=== PATIENT | male | born 1940 | race Caucasian/White ===

== ENCOUNTER 2016-11-28 09:24 | Observation (INO) | payer MEDICARE, OTHER ==
[~2016-11-28 09:24] MED LIST: ACETAMINOPHEN325 MG PO; ADULT ASPIRIN81 MG PO; ASPIR 8181 M1 PO; CARBAMAZEPINE200 M3 PO; CARBATROL200 MG PO; CARBATROL300 MG PO; CELEBREX200 M1 PO; CITRUCEL479 GM PO; COLACE100 MG PO; COUMADIN10 MG PO; COUMADIN2 MG; COUMADIN4 MG; COUMADIN4 MG PO; COUMADIN5 M2 PO; COUMADIN7.5 MG PO; COZAAR50 M1 PO; CRESTOR10 MG PO; DIOVAN160 MG; FERROUS SULFAT325 MG PO; H PO; KEFLEX500 M4 PO; KEPPRA500 MG; LEXAPRO10 M1 PO; LEXAPRO10 M2 PO; LEXAPRO10 MG; LEXAPRO10 MG PO; LOSARTAN POTAS100 MG PO; LOSARTAN POTASS50 MG PO; LOVENOX100 MG/ SQ; LOVENOX100 MG/1 M SQ; LOVENOX40 MG/0.1 SQ; LOW DOSE ASPIRI81 M1 PO; MIRALAX17 G1 PO; MIRALAX17 G2 PO; MIRALAX17 GM PO; MULTIVITAMINS1 EAC6 PO; NORCO 5/325 TAB1 TAB PO; OXYCODONE/APAP PO; PRILOSEC OTC20 MG PO; PRILOSEC20 M1 PO; PRILOSEC20 MG PO; ROSUVASTATIN CA10 MG PO; ROXICODONE5 MG PO; TRAMADOL HCL50 MG PO; ULTRAM50 M1 PO; ZOFRAN4 MG PO
[2016-11-28 10:24] LABS: BASO % 0.3 % (0-2); EOS % 1.1 % (0-7); EOSINOPHIL ABSOLUTE COUNT 0.1 tho/cmm (0.0-0.7); HCT-HEMATOCRIT 40.8 % (36.0-53.5); HGB-HEMOGLOBIN 13.3 gm/dl (13.5-17.0); IMMATURE GRANULOCYTES ABSOLUTE 0.03 tho/cmm (0-0.03); IMMATURE GRANULOCYTES PERCENT 0.4 % (0-0.3); LYMPH % 14.4 % (20-45); MCH (MEAN CORPUSCULAR HGB) 28.1 pg (28.0-32.0); MCHC MEAN CORPUSCULAR HGB CONC 32.6 % (32.0-36.0); MCV (MEAN CELL VOLUME) 86.3 fl (82.0-96.0); MEAN PLATELET VOLUME 9.6 cmc (9.4-12.4); MONO % 6.3 % (0-12); MONOCYTE ABSOLUTE COUNT 0.5 tho/cmm (0.0-1.2); NEUTROPHIL ABSOLUTE COUNT 5.6 tho/cmm (1.6-8.0); NEUTROPHIL-AUTOMATED 5.6 tho/cmm (1.6-8.0); NEUTROPHILS % 77.5 % (40-80); PLATELET COUNT 255 tho/cmm (150-450); RED BLOOD COUNT 4.73 mil/cmm (4.40-5.70); RED CELL DISTRIBUTION WIDTH 17.5 % (12.4-16.4); WHITE BLOOD COUNT 7.2 tho/cmm (4.0-10.0)
[2016-11-28] MEDS ORDERED: RANITIDINE HCL150 M2 PO (10:24)
[2016-11-28] MEDS ORDERED: CULTURELLE1 EAC1 PO (10:24)
[2016-11-28] MEDS ORDERED: VITAMIN D31000 UNI3 PO (10:24)
[2016-11-28 10:29] LABS: INR 3.6 INR (0.9-1.1); PROTHROMBIN TIME 43.7 SECONDS (9.0-13.6)
[2016-11-28 10:45] LABS: URINE BILIRUBIN NEGATIVE (NEG); URINE BLOOD MODERATE (NEG); URINE GLUCOSE (UA) NEGATIVE (NEG); URINE KETONE NEGATIVE (NEG); URINE LEUKOCYTE ESTERASE NEGATIVE (NEG); URINE NITRITE NEGATIVE (NEG); URINE PROTEIN NEGATIVE (NEG); URINE SPECIFIC GRAVITY 1.015 (1.003-1.030)
[2016-11-28 10:50] LABS: URINE APPEARANCE CLEAR; URINE COLOR YELLOW
[2016-11-28 10:55] LABS: ANION GAP 15 mmol/L (0-20); BLOOD UREA NITROGEN 15 mg/dl (6-24); CALCIUM 9.4 mg/dl (8.5-10.5); CARBON DIOXIDE-VENOUS 22 mmol/L (22-32); CHLORIDE 109 mmol/l (96-110); CREATININE 1.04 mg/dl (0.60-1.30); GLUCOSE 117 mg/dL (70-110); POTASSIUM 3.9 mmol/L (3.7-5.1); SODIUM 142 mmol/L (135-145); eGFR VALUE FOR BLACK 80 mL/Min
[2016-11-28 21:35] LABS: T4 (THYROXINE) 6.8 ug/dl (5.0-12.6)
[2016-11-28 21:48] LABS: TSH-THYROID STIMULATING HORM. 1.58 uIU/ml (0.40-3.80)
[2016-11-29 06:26] LABS: INR 3.4 INR (0.9-1.1); PROTHROMBIN TIME 41.4 SECONDS (9.0-13.6)
== END 2016-11-29 14:50 ==
LOC: EDMED 09:24 → EMR2 13:12 → 5EA 17:56
PROVIDERS: Emergency Medicine; Psychiatry & Neurology Neurology; ADMIT Hospitalist
DX: R41.3 Other amnesia (principal); I48.0 Paroxysmal atrial fibrillation; I10 Essential (primary) hypertension; E78.5 Hyperlipidemia, unspecified; D64.9 Anemia, unspecified; I51.7 Cardiomegaly; R41.0 Disorientation, unspecified; G45.9 Transient cerebral ischemic attack, unspecified; Z79.01 Long term (current) use of anticoagulants; Z95.2 Presence of prosthetic heart valve; Z90.49 Acquired absence of other specified parts of digestive tract; Z79.899 Other long term (current) drug therapy; Z98.890 Other specified postprocedural states
CPT/HCPCS: G0378; G8978-GP-CI; G8979-GP-CI; G8980-GP-CI; J7030

== ENCOUNTER 2017-02-15 19:55 | Inpatient (IN) | payer MEDICARE, OTHER ==
[~2017-02-15 19:55] MED LIST changes: +CULTURELLE1 EAC1 PO; +RANITIDINE HCL150 M2 PO; +VITAMIN D31000 UNI3 PO
[2017-02-15] MEDS ORDERED: VITAMIN B125000 MCG PO (20:13)
[2017-02-15 21:08] LABS: BASO % 0.4 % (0-2); EOS % 2.2 % (0-7); EOSINOPHIL ABSOLUTE COUNT 0.2 tho/cmm (0.0-0.7); HCT-HEMATOCRIT 37.9 % (36.0-53.5); HGB-HEMOGLOBIN 12.5 gm/dl (13.5-17.0); IMMATURE GRANULOCYTES ABSOLUTE 0.01 tho/cmm (0-0.03); IMMATURE GRANULOCYTES PERCENT 0.1 % (0-0.3); LYMPH % 14.8 % (20-45); LYMPH ABSOLUTE COUNT 1.2 tho/cmm (0.8-4.5); MCH (MEAN CORPUSCULAR HGB) 28.9 pg (28.0-32.0); MCV (MEAN CELL VOLUME) 87.7 fl (82.0-96.0); MONO % 6.6 % (0-12); MONOCYTE ABSOLUTE COUNT 0.5 tho/cmm (0.0-1.2); NEUTROPHIL ABSOLUTE COUNT 6.2 tho/cmm (1.6-8.0); NEUTROPHIL-AUTOMATED 6.2 tho/cmm (1.6-8.0); NEUTROPHILS % 75.9 % (40-80); PLATELET COUNT 264 tho/cmm (150-450); RED BLOOD COUNT 4.32 mil/cmm (4.40-5.70); RED CELL DISTRIBUTION WIDTH 14.4 % (12.4-16.4); WHITE BLOOD COUNT 8.2 tho/cmm (4.0-10.0)
[2017-02-15 21:12] LABS: INR 1.5 INR (0.9-1.1); PROTHROMBIN TIME 17.7 SECONDS (9.0-13.6)
[2017-02-15 21:25] LABS: ANION GAP 13 mmol/L (0-20); BLOOD UREA NITROGEN 18 mg/dl (6-24); CALCIUM 9.8 mg/dl (8.5-10.5); CARBON DIOXIDE-VENOUS 23 mmol/L (22-32); CHLORIDE 109 mmol/l (96-110); CREATININE 1.36 mg/dl (0.60-1.30); GLUCOSE 105 mg/dL (70-110); MAGNESIUM 2.2 mg/dl (1.8-2.6); POTASSIUM 3.9 mmol/L (3.7-5.1); SODIUM 141 mmol/L (135-145); eGFR VALUE FOR BLACK 58 mL/Min
[2017-02-15 21:29] LABS: TSH-THYROID STIMULATING HORM. 2.11 uIU/ml (0.40-3.80)
[2017-02-15 21:44] LABS: URINE BILIRUBIN NEGATIVE (NEG); URINE BLOOD SMALL (NEG); URINE GLUCOSE (UA) NEGATIVE (NEG); URINE KETONE NEGATIVE (NEG); URINE LEUKOCYTE ESTERASE NEGATIVE (NEG); URINE NITRITE NEGATIVE (NEG); URINE PROTEIN NEGATIVE (NEG)
[2017-02-15 21:47] LABS: URINE APPEARANCE CLEAR; URINE COLOR YELLOW
[2017-02-15 21:50] LABS: URINE EPITHELIAL CELLS 0-1 /[HPF] (0-10); URINE WBC 0-1 /[HPF] (0-5)
[2017-02-16 05:40] LABS: ANION GAP 11 mmol/L (0-20); BLOOD UREA NITROGEN 17 mg/dl (6-24); CALCIUM 9.4 mg/dl (8.5-10.5); CARBON DIOXIDE-VENOUS 26 mmol/L (22-32); CHLORIDE 110 mmol/l (96-110); CREATININE 1.03 mg/dl (0.60-1.30); GLUCOSE 112 mg/dL (70-110); SODIUM 143 mmol/L (135-145); eGFR VALUE FOR BLACK 81 mL/Min
[2017-02-17 05:45] LABS: ANION GAP 12 mmol/L (0-20); BLOOD UREA NITROGEN 14 mg/dl (6-24); CALCIUM 8.9 mg/dl (8.5-10.5); CARBON DIOXIDE-VENOUS 23 mmol/L (22-32); CHLORIDE 113 mmol/l (96-110); CREATININE 0.82 mg/dl (0.60-1.30); GLUCOSE 95 mg/dL (70-110); POTASSIUM 3.6 mmol/L (3.7-5.1); SODIUM 144 mmol/L (135-145); eGFR VALUE FOR BLACK >90 mL/Min
[2017-02-17] MEDS ORDERED: TEGRETOL X100 MG/TAB PO (13:11)
== END 2017-02-17 14:05 | DRG 72 ==
LOC: EDMED 19:55 → EMR2 02-16 01:19 → 5EB 02-16 08:10
PROVIDERS: Emergency Medicine; ADMIT Internal Medicine
DX: G93.49 Other encephalopathy (principal); I48.91 Unspecified atrial fibrillation; E86.0 Dehydration; R41.3 Other amnesia; G47.33 Obstructive sleep apnea (adult) (pediatric); I10 Essential (primary) hypertension; E78.5 Hyperlipidemia, unspecified; Z96.652 Presence of left artificial knee joint; Z95.2 Presence of prosthetic heart valve; Z79.01 Long term (current) use of anticoagulants
CPT/HCPCS: A9577; J1650; J7030